=== PATIENT | male | born 1980 | race American Indian/Alaskan Native ===

== ENCOUNTER 2019-03-25 09:28 | Emergency (ER) | payer OTHER ==
[2019-03-25] MEDS ORDERED: ATROVENT IH ONE (10:03)
[2019-03-25] MEDS ORDERED: TESSALON PERLES PO ONE (10:03)
[2019-03-25] MEDS ORDERED: PROVENTIL IH ONE (10:03)
[2019-03-25] MEDS ORDERED: TYLENOL PO ONE (10:08)
[2019-03-25] MEDS ORDERED: TORADOL IV ONE (10:09)
[2019-03-25] MEDS ORDERED: NACL 0.9% 1000 ML 1,000 ML IV ONE ×2 (10:09→11:49)
--- NOTE | 2019-03-25 10:24 | Emergency Department Report ---
HPI - General Chief Complaint: Upper Respiratory Infection Time Seen by Provider: 03/25/19 09:45 - HPI HPI: Room 1 The patient is a 38-year-old male presenting with a chief complaint of "malaria." The patient states he traveled to [facility] 03/02/2019. The patient states approximately 5-6 days later he developed cough, bodyaches, fever and feeling cold. The patient states the following day he went to a hospital where he was diagnosed with malaria. The patient states he received "injections" for 3 days (patient states he does not member the name of the medication). The patient states he started improving subsequent was discharged with a prescription for medication (patient states he does not remember the name of the medication). The patient states he returned to the [place] yesterday and again began having whole body aches, sore mouth, dizziness and a cough productive of yellow sputum. Location: [See above] Duration: [See above] Quality: [See above] Severity: [See above] Modifying factors: [see above] Context: [see above] Mode of transportation: [not driving] ED Past Medical Hx - Past Medical History Hx Hypertension: Yes - Surgical History Past Surgical History?: No - Family History Family history: no significant - Social History Smoking Status: Never Smoker Substance Use Type: None (denies illicit drug use) - Medications Home Medications: Home Medications Medication Instructions Recorded Confirmed Last Taken Type ALBUTEROL Inhaler (OR & NICU) 2 puff IH QID PRN #1 inhalation 03/25/19 Unknown Rx [Proair] Benzonatate [Tessalon Perles] 100 mg PO Q8HR #30 capsule 03/25/19 Unknown Rx HYDROcodone/APAP 5-325 [[place] 1 - 2 each PO Q6HR PRN #14 tablet 03/25/19 Unknown Rx 5/325] Ibuprofen [Motrin 800 MG tab] 800 mg PO Q8HR PRN #20 tablet 03/25/19 Unknown Rx ED Review of Systems ROS: Stated complaint: MALARIA/COUGH Other details as noted in HPI Constitutional: fever Eyes: denies: eye pain ENT: denies: throat pain Respiratory: cough Cardiovascular: denies: chest pain Endocrine: no symptoms reported Gastrointestinal: denies: abdominal pain Genitourinary: denies: dysuria Musculoskeletal: myalgia Neurological: denies: headache Physical Exam - Physical Exam Vital Signs: Vital Signs 03/25/19 09:44 Temperature 101.8 F H Pulse Rate 103 H Respiratory 16 Rate Blood Pressure 132/75 [Left] O2 Sat by Pulse 100 Oximetry Physical Exam: GENERAL: The patient is well-developed well-nourished male lying on stretcher not appearing to be in acute distress. [] HEENT: Normocephalic. Atraumatic. Extraocular motions are intact. Patient has moist mucous membranes. NECK: Supple. Trachea midline CHEST/LUNGS: Clear to auscultation. There is no respiratory distress noted. Cough noted with deep inspiration HEART/CARDIOVASCULAR: Regular. There is no tachycardia. There is no gallop rub or murmur. ABDOMEN: Abdomen is soft, nontender. Patient has normal bowel sounds. There is no abdominal distention. SKIN: There is no rash. There is no edema. There is no diaphoresis. NEURO: The patient is awake, alert, and oriented. The patient is cooperative. The patient has normal speech MUSCULOSKELETAL: TThere is no evidence of acute injury. ED Course Vital Signs 03/25/19 09:44 Temperature 101.8 F H Pulse Rate 103 H Respiratory 16 Rate Blood Pressure 132/75 [Left] O2 Sat by Pulse 100 Oximetry Vital Signs 03/25/19 03/25/19 03/25/19 09:44 10:20 10:29 Temperature 101.8 F H Pulse Rate 103 H Pulse Rate [ 111 H 111 H Anterior] Respiratory 16 Rate Respiratory 18 19 Rate [Anterior] Blood Pressure Blood Pressure 132/75 [Left] O2 Sat by Pulse 100 Oximetry 03/25/19 03/25/19 03/25/19 10:40 10:42 11:56 Temperature 101 F H 99.7 F H Pulse Rate 105 H Pulse Rate [ Anterior] Respiratory 24 24 Rate Respiratory Rate [Anterior] Blood Pressure Blood Pressure 151/87 [Left] O2 Sat by Pulse 100 96 Oximetry 03/25/19 03/25/19 03/25/19 12:15 12:27 12:30 Temperature Pulse Rate 97 H 97 H 97 H Pulse Rate [ Anterior] Respiratory 22 17 Rate Respiratory Rate [Anterior] Blood Pressure 138/79 136/79 Blood Pressure 138/79 [Left] O2 Sat by Pulse 97 Oximetry 03/25/19 12:44 Temperature Pulse Rate 96 H Pulse Rate [ Anterior] Respiratory 24 Rate Respiratory Rate [Anterior] Blood Pressure Blood Pressure [Left] O2 Sat by Pulse 95 Oximetry - Reevaluation(s) Reevaluation #1: 03/25/19 12:01 Patient states he feels much better. Patient remains tachycardic. Second liter of normal saline administered - Consultations Consultation #1: 03/25/19 12:46 Infectious diseases paged 03/25/19 13:[address] Alexander- may have patient follow-up in clinic ED Medical Decision Making - Lab Data Result diagrams: 03/25/19 10:35 03/25/19 10:36 Laboratory Tests 03/25/19 03/25/19 03/25/19 10:35 10:35 10:36 WBC 14.0 H RBC 5.93 H Hgb 16.3 H Hct 46.7 H MCV 79 L MCH 27 L MCHC 35 H RDW 13.6 Plt Count 395 Lymph % (Auto) 5.5 L Powell % (Auto) 9.4 H Eos % (Auto) 2.2 Baso % (Auto) 0.5 Lymph # 0.8 L Powell # 1.3 H Eos # 0.3 Baso # 0.1 Seg Neutrophils % 82.4 H Seg Neutrophils # 11.5 H PT 14.1 INR 1.12 APTT 25.4 Sodium 137 Potassium 4.2 Chloride 96.6 L Carbon Dioxide 27 Anion Gap 18 BUN 10 Creatinine 0.9 Estimated GFR > 60 BUN/Creatinine Ratio 11 Glucose 102 H Calcium 9.3 Total Bilirubin 1.60 H AST 24 ALT 29 Alkaline Phosphatase 81 Total Protein 8.2 Albumin 4.4 Albumin/Globulin Ratio 1.2 - Radiology Data Radiology results: report reviewed (chest x-ray), image reviewed (chest x-ray) interpreted by me: Chest x-ray- no focal infiltrates, no pneumothorax [facility] [address] [place] [address] XRay Report Signed Patient: OSCAR RICHEY MR#: Shivani [id number] : 1980 Acct:[id number] Age/Sex: 38 / M ADM Date: 03/25/19 Loc: ED Attending Dr: Ordering Physician: PRIMO BAIRD MD Date of Service: 03/25/19 Procedure(s): XR chest 1V ap Accession Number(s): [id number] cc: PRIMO BAIRD MD Fluoro Time In Minutes: CHEST 1 VIEW INDICATION: cough. COMPARISON: 07/11/2018 FINDINGS: Support devices: None. Heart: Normal. Pulmonary vasculature: Normal. Lungs/Pleura: Normally expanded and clear lungs. No pleural effusion. Additional findings: None. IMPRESSION: Normal chest. Signer Name: Jeevan Mcguire MD Signed: 03/25/2019 10:43 AM Workstation Name: [id number] Transcribed By: REF Dictated By: JEEVAN MCGUIRE MD Electronically Authenticated By: JEEVAN MCGUIRE MD Signed Date/Time: 03/25/19 1043 DD/ 1041 TD/TT: - Differential Diagnosis malaria, pneumonia, bronchitis Critical care attestation.: If time is entered above; I have spent that time in minutes in the direct care of this critically ill patient, excluding procedure time. ED Disposition Clinical Impression: Malaria Disposition: - TO HOME OR SELFCARE Is pt being admited?: No Does the pt Need Aspirin: No Condition: Stable Instructions: Malaria (ED) Additional Instructions: Return to the emergency department immediately should you develop worsening symptoms, fever, inability to tolerate food or liquid or any other concerns. Prescriptions: Ibuprofen [Motrin 800 MG tab] 800 mg PO Q8HR PRN #20 tablet PRN Reason: Pain , Severe (7-10) HYDROcodone/APAP 5-325 [[place] 5/325] 1 - 2 each PO Q6HR PRN #14 tablet PRN Reason: Pain ALBUTEROL Inhaler (OR & NICU) [Proair] 2 puff IH QID PRN #1 inhalation PRN Reason: Shortness Of Breath Benzonatate [Tessalon Perles] 100 mg PO Q8HR #30 capsule Ref[facility]: [facility] ERAN [Primary Care Provider] - 3-[address] Alexander, Infectious Diseases [Other] - 3-5 Days Time of Disposition: 13:57
--- NOTE | 2019-03-25 10:47 | XRay Report ---
CHEST 1 VIEW INDICATION: cough. COMPARISON: 07/11/2018 FINDINGS: Support devices: None. Heart: Normal. Pulmonary vasculature: Normal. Lungs/Pleura: Normally expanded and clear lungs. No pleural effusion. Additional findings: None. IMPRESSION: Normal chest. Signer Name: Darell Craig MD Signed: 03/25/2019 10:43 AM Workstation Name: [id number]
[2019-03-25 10:53] LABS: Basophils # (Auto) 0.1 K/mm3 (0.0-0.1); Basophils % (Auto) 0.5 % (0.0-1.8); Eosinophils # (Auto) 0.3 K/mm3 (0.0-0.4); Eosinophils % (Auto) 2.2 % (0.0-4.3); Hematocrit 46.7 % (35.5-45.6); Hemoglobin 16.3 gm/dl (11.8-15.2); Lymphocytes # (Auto) 0.8 K/mm3 (1.2-5.4); Lymphocytes % (Auto) 5.5 % (13.4-35.0); Mean Corpuscular HGB Conc 35 % (32-34); Mean Corpuscular Volume 79 fl (84-94); Monocytes # (Auto) 1.3 K/mm3 (0.0-0.8); Monocytes % (Auto) 9.4 % (0.0-7.3); Platelet Count 395 K/mm3 (140-440); Red Blood Count 5.93 M/mm3 (3.65-5.03); Red Cell Distribution Width 13.6 % (13.2-15.2)
[2019-03-25 11:02] LABS: INR 1.12 (0.87-1.13)
[2019-03-25 11:03] LABS: Partial Thromboplastin Time 25.4 Sec. (24.2-36.6)
[2019-03-25 11:16] LABS: Alanine Aminotransferase 29 units/L (7-56); Albumin 4.4 g/dL (3.9-5); BUN/Creatinine Ratio 11; Blood Urea Nitrogen 10 mg/dL (9-20); Calcium 9.3 mg/dL (8.4-10.2); Hemolysis Index 61
[2019-03-25 14:19] VITALS: BP 131/79
== END 2019-03-25 14:20 | disposition home or self-care (01) ==
LOC: ED 09:28
DX: B54 Unspecified malaria (principal); R42 Dizziness and giddiness; I10 Essential (primary) hypertension; Z79.899 Other long term (current) drug therapy
CPT/HCPCS: 36415; 71045; 80053; 85025; 85610; 85730; 87040; 94644; 96361; 96374; 99284; J1885; J7030; 94640

== ENCOUNTER 2019-03-28 05:01 | Emergency (ER) | payer OTHER ==
--- NOTE | 2019-03-28 07:03 | Emergency Department Report ---
HPI - General Chief Complaint: Dyspnea/Respdistress Time Seen by Provider: 03/28/19 06:06 - HPI HPI: 38-year-old male presents to the emergency department with complaint of continuation of a mixed dry and productive cough and exertional shortness of breath. Patient says that he has been dealing with malaria "all of my life since I was born in" [place]. He says that he was diagnosed with malaria last month at another hospital after he had traveled to [facility], and subsequently developed fever, shortness of breath and some similar symptoms. He received 3 injections of some unknown medication at that time as treatment for his malaria. The patient was seen here 4 days ago for similar symptoms. At the time his chief complaint was "malaria." The patient does say that he has been having some recurrent fevers but does admit that he has not checked his temperature and just says that he feels warm at different times. He was discharged from this emergency department with Fedora, ibuprofen, albuterol and Tessalon Perles. He states that he is only taking the ibuprofen at this time. When he was discharged he was also given a referral for infectious disease, whom he was supposed to follow up with outpatient, but he has not been able to do so yet. He also has a past medical history of hypertension. ED Past Medical Hx - Past Medical History Previous Medical History?: Yes Hx Hypertension: Yes - Surgical History Past Surgical History?: No - Social History Smoking Status: Never Smoker Substance Use Type: None - Medications Home Medications: Home Medications Medication Instructions Recorded Confirmed Last Taken Type ALBUTEROL Inhaler (OR & NICU) 2 puff IH QID PRN #1 inhalation 03/25/19 Unknown Rx [Proair] Benzonatate [Tessalon Perles] 100 mg PO Q8HR #30 capsule 03/25/19 Unknown Rx HYDROcodone/APAP 5-325 [[place] 1 - 2 each PO Q6HR PRN #14 tablet 03/25/19 Unknown Rx 5/325] Ibuprofen [Motrin 800 MG tab] 800 mg PO Q8HR PRN #20 tablet 03/25/19 Unknown Rx Doxycycline Hyclate [Doxycycline 100 mg PO Q12HR #14 tab 03/28/19 Unknown Rx Hyclate TAB] ED Review of Systems ROS: Stated complaint: SOB/FEVER Other details as noted in HPI Physical Exam - Physical Exam Vital Signs: Vital Signs 03/28/19 03/28/19 03/28/19 05:12 05:45 05:57 Temperature 98.1 F 98.3 F Pulse Rate 92 H 85 Respiratory 20 16 16 Rate Blood Pressure 157/104 149/93 [Left] O2 Sat by Pulse 95 97 97 Oximetry Physical Exam: GENERAL: The patient is well-developed well-nourished. HENT: Normocephalic. Atraumatic. Patient has moist mucous membranes. EYES: Extraocular motions are intact. NECK: Supple. Trachea is midline. CHEST/LUNGS: Clear to auscultation. No cough heard during examination. There is no respiratory distress noted. HEART/CARDIOVASCULAR: Regular. There is no tachycardia. There is no murmur. ABDOMEN: Abdomen is soft, nontender. Patient has normal bowel sounds. There is no abdominal distention. SKIN: Skin is warm and dry. NEURO: The patient is awake, alert, and oriented. The patient is cooperative. The patient has no focal neurologic deficits. The patient has normal speech. MUSCULOSKELETAL: There is no tenderness or deformity. There is no evidence of acute injury. ED Course Vital Signs 03/28/19 03/28/19 03/28/19 05:12 05:45 05:57 Temperature 98.1 F 98.3 F Pulse Rate 92 H 85 Respiratory 20 16 16 Rate Blood Pressure 157/104 149/93 [Left] O2 Sat by Pulse 95 97 97 Oximetry ED Medical Decision Making - Lab Data Result diagrams: 03/28/19 06:45 03/28/19 06:45 - EKG Data -: EKG Interpreted by [facility] EKG shows normal: sinus rhythm, axis, intervals, QRS complexes, ST-T waves Rate: normal - EKG Data When compared to previous EKG there are: previous EKG unavailable Interpretation: normal EKG - Radiology Data Radiology results: report reviewed CHEST 2 VIEWS INDICATION / CLINICAL INFORMATION: Dyspnea. COMPARISON: 03/25/2019 FINDINGS: SUPPORT DEVICES: None. HEART / MEDIASTINUM: No significant abnormality. LUNGS / PLEURA: There is developing interstitial lung disease not seen previously either representing edema or atypical pneumonia. No alveolar consolidation or effusions. No pneumothorax. ADDITIONAL FINDINGS: No significant additional findings. IMPRESSION: 1. Worsening chest CTA CHEST WITH IV CONTRAST INDICATION: SOB, elevated dimer. TECHNIQUE: Axial CT images were obtained through the chest after injection of IV contrast. 3 plane MIP reconstructions were produced. All CT scans at this location are performed using CT dose reduction for ALARA by means of automated exposure control. COMPARISON: None available. FINDINGS: PULMONARY ARTERIES: No pulmonary emboli. THORACIC AORTA: No acute abnormality. HEART: Normal. CORONARY ARTERIES: No significant calcification. PLEURA: Tiny bilateral pleural effusions No pneumothorax. LYMPH NODES: No significant adenopathy. LUNGS: Moderate airspace consolidation both lower lobes characteristic for bronchopneumonia ADDITIONAL FINDINGS: None. UPPER ABDOMEN: No acute findings. SKELETAL STRUCTURES: No significant osseous abnormality. IMPRESSION: 1. No CT evidence for pulmonary embolism. 2. Bilateral lower lobe bronchopneumonia - Medical Decision Making This patient came in with the complaint of some subjective fever, shortness of breath that worsens with exertion and a cough. Labs have been mostly unremarkable. Initial chest x-ray was read by radiology as worsening pulmonary status. The patient did have an elevated d-dimer level so a CT angiography of the chest was done that shows bilateral lower lobe pneumonia. His vital signs were stable throughout his ED course including being afebrile. He was given both Rocephin and azithromycin here. The patient has been stable throughout his ED course and we will attempt treatment in the outpatient setting. Given the patient's complicated history of malaria and recent travel to [place], he will be treated with some doxycycline. The patient will still follow up with the infectious disease physician previously referred to him, as well as his primary care physician. He will return to the emergency Department with any worsening of his symptoms or any acute distress. - Differential Diagnosis pneumonia, COPD, PE, asthma, dysrhythmia Critical Care Time: No Critical care attestation.: If time is entered above; I have spent that time in minutes in the direct care of this critically ill patient, excluding procedure time. ED Disposition Clinical Impression: Pneumonia Qualifiers: Pneumonia type: due to unspecified organism Laterality: bilateral Lung location: lower lobe of lung Qualified Code(s): J18.1 - Lobar pneumonia, unspecified organism Hypertension Qualifiers: Hypertension type: essential hypertension Qualified Code(s): I10 - Essential (primary) hypertension Disposition: - TO HOME OR SELFCARE Is pt being admited?: No Condition: Stable Instructions: Community-acquired Pneumonia (ED), Bacterial Pneumonia (ED), Hypertension (ED) Additional Instructions: Please follow up with your primary care physician and the infectious disease physician that you were previously referred to. Take the antibiotics as prescribed. This antibiotic, doxycycline, has the side effect of making you more susceptible to UV light/sunlight. Therefore, you should wear sunscreen or take precautions if you are outdoors. Return to the emergency Department with any worsening of your symptoms or any acute distress. You can take the benzonatate and use the albuterol inhaler that she were previously prescribed. Prescriptions: Doxycycline Hyclate [Doxycycline Hyclate TAB] 100 mg PO Q12HR #14 tab Referrals: PRIMARY CARE, [Primary Care Provider] - 2-3 Days Time of Disposition: 10:53
[2019-03-28] MEDS ORDERED: ROCEPHIN/NS 1 GM/50 ML 1 GM/50 ML BAG IV ONE (07:05)
[2019-03-28] MEDS ORDERED: ZITHROMAX 500 MG in NACL 0.9% 250ML 250 ML IV ONE (07:05)
[2019-03-28 07:36] LABS: Basophils # (Auto) 0.1 K/mm3 (0.0-0.1); Basophils % (Auto) 0.8 % (0.0-1.8); Eosinophils % (Auto) 10.7 % (0.0-4.3); Hematocrit 44.6 % (35.5-45.6); Hemoglobin 15.5 gm/dl (11.8-15.2); Lymphocytes % (Auto) 10.4 % (13.4-35.0); Mean Corpuscular HGB Conc 35 % (32-34); Mean Corpuscular Volume 79 fl (84-94); Monocytes # (Auto) 0.9 K/mm3 (0.0-0.8); Monocytes % (Auto) 9.9 % (0.0-7.3); Platelet Count 357 K/mm3 (140-440); Red Blood Count 5.65 M/mm3 (3.65-5.03); Red Cell Distribution Width 13.6 % (13.2-15.2)
[2019-03-28] MEDS ORDERED: DUONEB *Not for PRN Use IH ONE (07:53)
[2019-03-28 07:56] LABS: Alanine Aminotransferase 46 units/L (7-56); Albumin 3.6 g/dL (3.9-5); BUN/Creatinine Ratio 10; Blood Urea Nitrogen 8 mg/dL (9-20); Calcium 8.8 mg/dL (8.4-10.2); Hemolysis Index 15
[2019-03-28] MEDS ORDERED: K-DUR PO ONE (08:00)
--- NOTE | 2019-03-28 10:41 | Cat Scan Report ---
CTA CHEST WITH IV CONTRAST INDICATION: SOB, elevated dimer. TECHNIQUE: Axial CT images were obtained through the chest after injection of IV contrast. 3 plane MIP reconstru ctions were produced. All CT scans at this location are performed using CT dose reduction for ALARA b y means of automated exposure control. COMPARISON: None available. FINDINGS: PULMONARY ARTERIES: No pulmonary emboli. THORACIC AORTA: No acute abnormality. HEART: Normal. CORONARY ARTERIES: No significant calcification. PLEURA: Tiny bilateral pleural effusions No pneumothorax. LYMPH NODES: No significant adenopathy. LUNGS: Moderate airspace consolidation both lower lobes characteristic for bronchopneumonia ADDITIONAL FINDINGS: None. UPPER ABDOMEN: No acute findings. SKELETAL STRUCTURES: No significant osseous abnormality. IMPRESSION: 1. No CT evidence for pulmonary embolism. 2. Bilateral lower lobe bronchopneumonia Signer Name: Mayo Davis MD Signed: 03/28/2019 10:36 AM Workstation Name: [id number]
[2019-03-28 10:54] VITALS: BP 148/88
== END 2019-03-28 11:00 | disposition home or self-care (01) ==
LOC: ED 05:01
DX: J18.9 Pneumonia, unspecified organism (principal); I10 Essential (primary) hypertension; Z79.899 Other long term (current) drug therapy
CPT/HCPCS: 36415; 71046; 71275; 80053; 83880; 84484; 85025; 85379; 87040; 93005; 93010; 94640; 96365; 96367; 99285; J0456; J0696; J7050; Q9967; 94644